=== PATIENT | male | born 1955 | race Caucasian/White ===

== ENCOUNTER 2017-07-21 13:17 | Emergency (ER) | payer BC ==
--- NOTE | 2017-07-21 13:34 | EDM.PDOC ---
ED HPI GENERAL MEDICAL PROBLEM - General Chief Complaint: Diabetic Complaint Stated Complaint: HIGH BLOOD SUGAR Time Seen by Provider: 07/21/17 13:17 Source of Information: Reports: Patient History Limitations: Reports: No Limitations - History of Present Illness INITIAL COMMENTS - FREE TEXT/NARRATIVE: 61 y.o.w.m with h/o Polymyositis, recently diagnosed, currently on 25 mg of prednison daily, was seen by his Tax Technician today. The patient was called while he was driving home, his blood sugar is above 494 and he needs to be seen in an ed right away. His H A1C was 12.3 today. He had frequent urinations. BP 193/115 pulse 80 RR 14 temp 36.8. Pt did not have DM in the past and this is a new Dx for him. Pt came to get Tx, teaching etc. Onset: Today Onset Date: 07/21/17 Onset Time: 12:00 Duration: Minutes:, Constant Location: Reports: Generalized Severity: Moderate (BS was 449) Context: Reports: Other (new dx'd DM since being on Prednison) Associated Symptoms: Reports: Other (frequent urinations) - Related Data Allergies Allergy/AdvReac Type Severity Reaction Status Date / Time No Known Allergies Allergy Verified 07/21/17 13:23 Home Meds: Home Meds Cholecalciferol (Vitamin D3) [Vitamin D3] 1,000 units PO DAILY 07/21/17 [History ] Fish Oil/[place]-3 Fatty Acids [Fish Oil] 1 each PO DAILY 07/21/17 [History] Losartan [Cozaar] 50 mg PO DAILY 07/21/17 [History] Sulfamethoxazole/Trimethoprim [Bactrim Ds Tablet] 1 each PO MOWEFR 07/21/17 [ History] predniSONE [predniSONE] 10 mg PO BID 07/21/17 [History] Social & Family History - Tobacco Use Smoking Status *Q: Never Smoker - Recreational Drug Use Recreational Drug Use: No Drug Use in Last 12 Months: No ED ROS GENERAL - Review of Systems Review Of Systems: See Below Constitutional: Reports: No Symptoms HEENT: Reports: No Symptoms Respiratory: Reports: No Symptoms Cardiovascular: Reports: No Symptoms Endocrine: Reports: No Symptoms GI/Abdominal: Reports: No Symptoms : Reports: No Symptoms Musculoskeletal: Reports: No Symptoms Skin: Reports: No Symptoms Neurological: Reports: No Symptoms Psychiatric: Reports: No Symptoms Hematologic/Lymphatic: Reports: No Symptoms Immunologic: Reports: No Symptoms ED EXAM GENERAL NO PERIP PULSE - Physical Exam Exam: See Below Exam Limited By: No Limitations General Appearance: Alert, WD/WN, No Apparent Distress Eye Exam: Bilateral Eye: Normal Inspection Ears: Normal External Exam Nose: Normal Inspection Throat/Mouth: Normal Inspection Head: Atraumatic, Normocephalic Neck: Normal Inspection, Supple, Non-Tender Respiratory/Chest: No Respiratory Distress Cardiovascular: Normal Peripheral Pulses, Regular Rate, Rhythm, No Edema, No Gallop GI/Abdominal: Normal Bowel Sounds, Soft, Non-Tender (Male) Exam: Deferred Rectal (Males) Exam: Deferred Back Exam: Normal Inspection, Full Range of Motion Extremities: Normal Inspection, Normal Range of Motion, Non-Tender, No Pedal Edema Neurological: Alert, Oriented, CN II-XII Intact, Normal Cognition, Normal Gait Psychiatric: Normal Affect, Normal Mood Skin Exam: Warm, Dry, Intact, Normal Color, No Rash Lymphatic: No Adenopathy Course - Vital Signs Text/Narrative:: 61 y.o.w.m with h/o , recently diagnosed, currently on 25 mg of prednison daily , was seen by his Tax Technician today. The patient was called while he was driving home, his blood sugar is above 494 and he needs to be seen in an ed right away. His H A1C was 12.3 today. He had frequent urinations. BP 193/115 pulse 80 RR 14 temp 36.8. Pt did not have DM in the past and this is a new Dx for him. Pt came to get Tx, teaching etc. PE: WNWD WM NAD goPolymyalgia rheumaticaing to the bathroom multiple times. 1.[address] Baeza: will set up pt for new Dx'd Diabetes in his office for Tx, Teaching, diet etc. now, today. Impression: HTN, new Dx'd DM, possible medication (prednison)induced. 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 He will set you up for Treatment, teaching, diet etc. Please com back if your symptoms get worse acutely
[2017-07-21 14:01] VITALS: BP 180/108
== END 2017-07-21 14:03 | disposition home or self-care (01) ==
LOC: FB.ED 13:17
DX: E09.9 Drug or chemical induced diabetes mellitus without complications (principal); T38.0X5A Adverse effect of glucocorticoids and synthetic analogues, initial encounter; I10 Essential (primary) hypertension; Z79.899 Other long term (current) drug therapy
CPT/HCPCS: 99283

== ENCOUNTER 2019-01-25 09:10 | Emergency (ER) | payer BC ==
[2019-01-25] MEDS ORDERED: Meclizine 25 MG Tab PO ONE ×3 (09:11→14:10)
[2019-01-25] MEDS: Sodium Chloride 0.9% 10 ML Syringe FLUSH PRN ×2 (09:35→16:51)
[2019-01-25] MEDS ORDERED: Ondansetron 4 MG/2 ML SDV IVPUSH ONE ×2 (09:37→16:44)
[2019-01-25] MEDS ORDERED: Sodium Chloride 0.9% 1,000 ML IV ONE (09:37)
--- NOTE | 2019-01-25 09:40 | EDM.PDOC ---
ED HPI GENERAL MEDICAL PROBLEM - General Chief Complaint: Gastrointestinal Problem Stated Complaint: DIZZY, Time Seen by Provider: 01/25/19 09:10 Source of Information: Reports: Patient, Family History Limitations: Reports: No Limitations - History of Present Illness INITIAL COMMENTS - FREE TEXT/NARRATIVE: 63 y.o.w m with a H/o HTN came with his in a wheel chair due to severe dizziness. He is not able to walk with out help. Pt woke up with those symptoms. One of the pt's relatives has vertigo. 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 No SOB, no CP. No trauma, no other acute med issues. BP 144/85 Pulse 57 RR 18 Pulse ox 98% on RA, Temp 36.6 Onset Date: 01/25/19 Onset Time: 07:00 Duration: Hour(s):, Intermittent Location: Reports: Head, Face Quality: Reports: Other (dizziness) Severity: Moderate Improves with: Reports: Rest Worsens with: Reports: Movement Context: Reports: Other Associated Symptoms: Reports: Other (nausea) - Related Data Allergies Allergy/AdvReac Type Severity Reaction Status Date / Time No Known Allergies Allergy Verified 01/25/19 09:13 Home Meds: Home Meds Aspirin [[place] Chewable] 81 mg PO DAILY 01/25/19 [History] Cholecalciferol (Vitamin D3) [Vitamin D3] 2,000 unit PO DAILY 01/25/19 [History] Losartan [Cozaar] 100 mg PO DAILY 01/25/19 [History] [place]-3/DHA/Epa/Fish Oil [[place] 3 500 Softgel] 1 each PO DAILY 01/25/19 [History ] amLODIPine Besylate [Amlodipine Besylate] 10 mg PO DAILY 01/25/19 [History] atorvaSTATin Calcium [Atorvastatin Calcium] 10 mg PO DAILY 01/25/19 [History] predniSONE [Prednisone] 2 mg PO DAILY 01/25/19 [History] Past Medical History HEENT History: Reports: Impaired Vision Cardiovascular History: Reports: Hypertension Endocrine/Metabolic History: Reports: Diabetes, Type II Social & Family History - Tobacco Use Smoking Status *Q: Never Smoker - Caffeine Use Caffeine Use: Reports: None - Recreational Drug Use Recreational Drug Use: No ED ROS GENERAL - Review of Systems Review Of Systems: See Below Constitutional: Reports: No Symptoms HEENT: Reports: No Symptoms Respiratory: Reports: No Symptoms Cardiovascular: Reports: No Symptoms Endocrine: Reports: No Symptoms GI/Abdominal: Reports: No Symptoms : Reports: No Symptoms Musculoskeletal: Reports: No Symptoms Skin: Reports: No Symptoms Neurological: Reports: Dizziness Psychiatric: Reports: No Symptoms Hematologic/Lymphatic: Reports: No Symptoms Immunologic: Reports: No Symptoms ED EXAM, GI/ABD - Physical Exam Exam: See Below Exam Limited By: No Limitations General Appearance: Alert, WD/WN, Mild Distress Eyes: Bilateral: Nystagmus (worse if gaze the right side) Ears: Normal External Exam, Normal Canal Nose: Normal Inspection, Normal Mucosa, No Blood Throat/Mouth: Normal Inspection, Normal Lips, Normal Voice, No Airway Compromise Head: Atraumatic, Normocephalic Neck: Normal Inspection, Supple, Non-Tender, Full Range of Motion Respiratory/Chest: No Respiratory Distress, Lungs Clear, Normal Breath Sounds, Chest Non-Tender Cardiovascular: Normal Peripheral Pulses, Regular Rate, Rhythm, No Murmur, No Rub GI/Abdominal Exam: Normal Bowel Sounds, Soft, Non-Tender, No Organomegaly, No Mass, Pelvis Stable (Male) Exam: Deferred Rectal (Males) Exam: Deferred Back Exam: Normal Inspection, Full Range of Motion Extremities: Normal Inspection, Normal Range of Motion, Non-Tender Neurological: Alert, Oriented, CN II-XII Intact, Normal Cognition, Abnormal Gait (deu to dizziness) Psychiatric: Normal Affect, Normal Mood Skin Exam: Warm, Dry, Intact, Normal Color, No Rash Lymphatic: No Adenopathy EKG INTERPRETATION EKG Date: 01/25/19 Time: 15:35 Rhythm: NSR Rate (Beats/Min): 57 [place]: Normal P-Wave: Present QRS: Normal ST-T: Normal QT: Normal Comparison: NA - No Prior EKG Course - Vital Signs Text/Narrative:: 63 y.o.w m with a H/o HTN came with his in a wheel chair due to severe dizziness. He is not able to walk with out help. Pt woke up with those symptoms. One of the pt's relatives has vertigo. 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 No SOB, no CP. No trauma, no other acute med issues. BP 144/85 Pulse 57 RR 18 Pulse ox 98% on RA, Temp 36.6 PE: WNWD W M with nystagmus, more so to the right. Imaging: MRI Brain: MAYRA vor CVA, CTA brain and CTA spine: NAD as per RAD Labs: CBC and BMP were neg Mg was 1.7 and Ca was 8.3 however. Impression: Vertigo (BPPV) , low MG and low Ca Tx: Antivert, NS, Zofran 2.[address] Cunningham, Neurologist. [facility]: CT head and neck with IV contrast, if nl do Leola maneuver 4.45 pm Consultation: Dr. Cosme, Hospitalist: Pt can go home with family and follow up with Leola maneuver at Physical Tx in am Reexam: Pt was stable in the still vertigpo on D/C with Family. Family was confident to the Pt home. Plan: D/C with instructions Last Recorded V/S: Last Vital Signs Temp 36.9 C 01/25/19 19:22 Pulse 57 L 01/25/19 19:22 Resp 18 01/25/19 19:22 BP 155/83 H 01/25/19 19:22 Pulse Ox 100 01/25/19 19:22 - Orders/Labs/Meds Orders: Active Orders 24 hr Category Date Time Status Blood Glucose Check, Bedside [RC] ONETIME Care 01/25/19 09:17 Active EKG Documentation Completion [RC] ASDIRECTED Care 01/25/19 12:56 Active Ang Head [CT] Stat Exams 01/25/19 16:44 Ordered Ang Neck [CT] Stat Exams 01/25/19 16:44 Taken Brain w wo Cont [MR] Stat Exams 01/25/19 10:38 Taken EKG 12 Lead [EK] Routine Ther 01/25/19 12:56 Ordered Labs: Laboratory Tests 01/25/19 01/25/19 Range/Units 09:50 09:50 WBC 5.0 (4.5-12.0) X10-3/uL RBC 4.38 (4.30-5.75) x10(6)uL Hgb 13.9 (13.5-17.8) g/dL Hct 39.2 (30.0-51.3) % MCV 89.3 (80-96) fL MCH 31.7 (27.7-33.6) pg MCHC 35.5 H (32.2-35.4) g/dL RDW 12.1 (11.5-15.5) % Plt Count 151 (125-369) X10(3)uL MPV 7.3 L (7.4-10.4) fL Neut % (Auto) 75.9 (46-82) % Lymph % (Auto) 16.3 (13-37) % [place] % (Auto) 5.9 (4-12) % Eos % (Auto) 1 (1.0-5.0) % Baso % (Auto) 1 (0-2) % Neut # (Auto) 3.9 (1.6-8.3) # Lymph # (Auto) 0.8 (0.6-5.0) # [place] # (Auto) 0.3 (0.0-1.3) # Eos # (Auto) 0.0 (0.0-0.8) # Baso # (Auto) 0.0 (0.0-0.2) # Sodium 141 (135-145) mmol/L Potassium 4.2 (3.5-5.3) mmol/L Chloride 107 (100-110) mmol/L Carbon Dioxide 26 (21-32) mmol/L BUN 16 (7-18) mg/dL Creatinine 0.9 (0.70-1.30) mg/dL Est Cr Clr Drug Dosing 89.48 mL/min Estimated GFR (MDRD) > 60 (>60) BUN/Creatinine Ratio 17.8 (9-20) Glucose 157 H (80-116) mg/dL Calcium 8.3 L (8.6-10.2) mg/dL Magnesium 1.7 L (1.8-2.5) mg/dL Meds: Medications Discontinued Medications Generic Name Dose Route Start Last Admin Trade Name Freq PRN Reason Stop Dose Admin Calcium Carbonate/Glycine 1,000 mg 01/25/19 10:36 01/25/19 10:54 Tums PO 01/25/19 10:37 1,000 mg ONETIME ONE Administration Gadoteridol 20 ml 01/25/19 11:15 01/25/19 12:15 Prohance IV 18 ml . DIRECTED BOB Administration Sodium Chloride 1,000 mls @ 999 mls/hr 01/25/19 09:37 01/25/19 09:40 Normal Saline IV 01/25/19 10:37 999 mls/hr .BOLUS ONE Administration Iopamidol 100 ml 06/03/19 17:28 01/25/19 17:47 Isovue-370 (76%) IV 01/25/19 17:29 85 ml . DIRECTED ONE Administration Magnesium Chloride 64 mg 01/25/19 10:36 01/25/19 10:54 Mag-64 PO 01/25/19 10:37 64 mg ONETIME STA Administration Meclizine HCl 25 mg 01/25/19 09:39 01/25/19 10:33 Antivert PO 01/25/19 09:40 25 mg ONETIME ONE Administration Meclizine HCl 25 mg 01/25/19 14:10 01/25/19 14:17 Antivert PO 01/25/19 14:11 25 mg ONETIME ONE Administration Ondansetron HCl 8 mg 01/25/19 09:37 01/25/19 09:46 Zofran IVPUSH 01/25/19 09:38 8 mg ONETIME ONE Administration Ondansetron HCl 8 mg 01/25/19 16:44 01/25/19 16:50 Zofran IVPUSH 01/25/19 16:45 8 mg ONETIME ONE Administration Sodium Chloride 10 ml 01/25/19 09:35 01/25/19 16:51 Saline Flush FLUSH 10 ml ASDIRECTED PRN Administration IV Use Departure - Departure Time of Disposition: 10:43 Disposition: Home, Self-Care 01 Condition: Good Clinical Impression: Vertigo, Hypocalcemia, Hypomagnesemia - Discharge Information Instructions: Vertigo, [id number] Referrals: Lopez Baeza MD [Primary Care Provider] - Forms: ED Department Discharge Additional Instructions: Please take Ca and Mg supplements, please F/U in am at the physical Tx in am. Please call [phone], take Antivert as recommended, please come back if your symptoms get worse acutely. - My Orders Last 24 Hours: My Active Orders 01/25/19 09:17 Blood Glucose Check, Bedside [RC] ONETIME 01/25/19 10:38 Brain w wo Cont [MR] Stat 01/25/19 12:56 EKG Documentation Completion [RC] ASDIRECTED EKG 12 Lead [EK] Routine 01/25/19 16:44 Ang Head [CT] Stat Ang Neck [CT] Stat - Assessment/Plan Last 24 Hours: My Active Orders 01/25/19 09:17 Blood Glucose Check, Bedside [RC] ONETIME 01/25/19 10:38 Brain w wo Cont [MR] Stat 01/25/19 12:56 EKG Documentation Completion [RC] ASDIRECTED EKG 12 Lead [EK] Routine 01/25/19 16:44 Ang Head [CT] Stat Ang Neck [CT] Stat
[2019-01-25] MEDS ORDERED: Calcium Carbonate 500 MG Tab.Chew PO ONE (10:36)
[2019-01-25] MEDS ORDERED: Magnesium Chloride 64 MG Tab.ER PO STA (10:36)
[2019-01-25] MEDS ORDERED: Gadoteridol 279.3 MG/ML 20 ML SDV IV SCH (11:15)
[2019-01-25] MEDS ORDERED: Iopamidol 755 Mg/ML 100 ML Bottle IV ONE (17:28)
[2019-01-25 20:12] VITALS: BP 155/83
--- NOTE | 2019-01-26 08:54 | CT ---
INDICATION: Dizzy. COMPUTERIZED TOMOGRAPHY ANGIOGRAPHY OF THE HEAD WITH CONTRAST: Spiral 3 mm axial sections were obtained through the brain with 85 cc Isovue 370 at 4 cc per second with sagittal and coronal reconstructions 01/25/19--no older CT of the head were available at time of dictation. The arterial structures including the internal carotids, vertebral, basilar and the remainder of the intercranial circulation appeared normal with no significant areas of stenosis or ablation and no abnormal contrast enhancement suggested. IMPRESSION: Normal CT angiography of the head with contrast. The report was called to Dr. Heaton at 1905 hours. [facility]
--- NOTE | 2019-01-26 08:55 | CT ---
INDICATION: Dizzy. CT ANGIOGRAPHY OF THE NECK: Spiral axial 3 mm images of the neck were obtained with sagittal and coronal reconstruction utilizing 85 cc of Isovue 370 at 4 cc per second with sagittal and coronal reconstructions 01/25/19--no comparisons. Total exam DLP = 505.97 mGy-cm. The vertebral and internal carotid arteries as well as the common carotid arteries and external carotid arteries were well visualized. There is no significant atherosclerotic change. No evidence of stenosis or mass lesion is identified. IMPRESSION: Normal CT angiography of the neck with contrast. The report was called to Dr. Heaton at 1905 hours. [facility]
== END 2019-01-25 19:31 | disposition home or self-care (01) ==
LOC: FB.ED 09:10
DX: H81.10 Benign paroxysmal vertigo, unspecified ear (principal); E83.42 Hypomagnesemia; E83.52 Hypercalcemia; I10 Essential (primary) hypertension; E11.9 Type 2 diabetes mellitus without complications; Z79.82 Long term (current) use of aspirin; Z79.899 Other long term (current) drug therapy
CPT/HCPCS: 36415; 70496; 70498; 70553; 80048; 82962; 83735; 85025; 93005; 96374; 99284; A9270; A9579; J2405; J7030; Q9967